=== PATIENT | male | born 1960 | race Caucasian/White ===

== ENCOUNTER 2024-10-10 13:17 | Oncology outpatient (recurring) (ONCR) | payer SELFPAY | END 2024-10-21 23:59 | disposition home or self-care (01) | PROVIDERS: Visit Provider Internal Medicine Medical Oncology | DX: C22.1 Intrahepatic bile duct carcinoma; G89.3 Neoplasm related pain (acute) (chronic) ==

== ENCOUNTER 2024-10-11 07:15 | Emergency (ER) | payer MEDICARE, SELFPAY ==
--- NOTE | 2024-10-11 07:23 | ED_ITS ---
HPI - Abdominal Pain 2 General: Chief Complaint: Abdominal Pain Stated Complaint: serve abd pain Time Seen by Provider: 10/11/24 07:21 Source: patient and family Mode of arrival: wheelchair Limitations: no limitations History of Present Illness: Patient is a 64 year old male here for complaints of severe abdominal pain. Looking at previous documentation (only one note in our system-was from our oncology center yesterday). There visit HPI is as follows: 64 years a gentleman with history of travis ated hepatitis C. He lived in [facility]. Presented to local hospital for abdominal pain. And was admitted to [facility]. Patient undergoing upper and lower endoscopy which did not see any tumor. CT scan of abdomen shows multiple rounded mass in the liver. There is also multiple lung nodule. Extensive bulky adenopathy in the right hepatic hilum and throughout the retroperitoneum extending to the left common iliac region. Patient underwent CT-guided biopsy of the liver lesion on October 04 which shows poorly differentiated carcinoma. CK7 CK20 CK19 was positive. 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 Patient received 1 radiation treatment to relieve the pain also had a celiac blockage. Then family took patient back to [facility] for further treatment. He is currently taking Dilaudid for pain. He also has high blood pressure taking clonidine. He lost some weight. Has constipation. Patient arrives to the ED today along with his son. He recently has brought him home here in [place] from his original residence in [facility] as the patient has no friends/family there to take care of him. The son is now caring for him here. Son states on their way back from [place], they had to stop in [place] due to patient's pain. Date of service was 10/07 (4 days ago). He did undergo CT imaging while at their facility. CT scan at that time showed innumerable masses within the liver consistent with multifocal metastatic disease, extensive lymphadenopathy consistent with metastatic disease or lymphoma, small to moderate volume abdominal and pelvic ascites, circumferential wall thickening within distal esophagus, and nodular opacities in his lungs. Son states they have plans to obtain additional lab work and MRI imaging through our [facility] oncology department. They have been told that his only option at this time is palliative chemotherapy. Patient states he has had similar flares in his abdominal pain that he had to seek medical evaluation for and receive IV Dilaudid to help. MD elicited complaint: abdominal pain Pertinent past history: other (cancer) Location: Diffuse Severity: severe Pain scale (0-10): 10 Radiation: none Migration to: no migration Exacerbating factors: nothing Relieving factors: nothing Context: other (known intra-abdominal malignancy) Associated Symptoms: Reports constipation, nausea and vomiting; Denies chills, diarrhea, dysuria, fever(s), hematochezia and melena Related Data Home Medications Medication Instructions Recorded Confirmed amlodipine 5 mg tablet 5 mg PO DAILY 10/10/24 10/11/24 bisacodyl 10 mg rectal suppository 10 mg [place] DAILY PRN Constipation 10/10/24 10/11/24 naloxone 4 mg/actuation nasal spray 4 mg intranasal Q2M 10/10/24 10/11/24 ondansetron 4 mg disintegrating 4 mg PO Q8H PRN Nausea 10/10/24 10/11/24 tablet polyethylene glycol 3350 17 4 g PO DAILY 10/10/24 10/11/24 gram/dose oral powder promethazine 25 mg tablet 25 mg PO .Q4-6H PRN Nausea 10/11/24 10/11/24 Previous Rx's Medication Instructions Recorded clonidine HCl 0.1 mg tablet 0.1 mg PO TID #90 tabs 10/10/24 gabapentin 300 mg capsule 300 mg PO TID #90 caps 10/10/24 hydromorphone 8 mg tablet 4 mg (1/2 x 8 mg) PO Q3H PRN pain 10/10/24 30 days #120 tabs Allergies Allergy/AdvReac Type Severity Reaction Status Date / Time No Known Drug Allergies Allergy Unknown Verified 10/11/24 07:35 Review of Systems 2 Const: Denies: fever(s), chills, body aches, fatigue or malaise Card: Denies: chest pain Resp: Denies: dyspnea GI: Reports: abdominal pain, nausea, vomiting and constipation; Denies: diarrhea, hematochezia or melena : Denies: flank pain, difficulty urinating, dysuria, urinary frequency, urinary urgency or urinary hesitancy Musc: Denies: neck pain, back pain, extremity pain, extremity swelling, joint pain or joint swelling Skin/Breast: Denies: rash Neuro: Denies: headache(s), numbness in extremities, weakness in extremities, sensory changes or dizziness PFS ED 2 PFSH: Medical History Hepatitis C Social History Smoking and tobacco/nicotine status: current some day tobacco/nicotine user Physical Exam 2 Const: COMMON NORMALS: patient oriented x3, no limitations and alert G ENERAL APPEARANCE: cooperative, in distress (due to abdominal discomfort) and frail appearing ORIENTATION/CONSCIOUSNESS: Yes awake, Yes oriented to person, Yes oriented to place and Yes oriented to time HENMT: COMMON NORMALS: normocephalic and atraumatic HEAD & SCALP: normal to inspection, normocephalic and atraumatic Eye: COMMON NORMALS: no scleral icterus Resp: COMMON NORMALS: normal respiratory effort and clear to auscultation bilaterally AUSCULTATION: clear to auscultation bilaterally Cardio: COMMON NORMALS: regular rate and regular rhythm RATE: regular rate RHYTHM: regular rhythm GI: INSPECTION: Yes normal to inspection AUSCULTATION: Yes normoactive bowel sounds PALPATION: Yes Tenderness to palpation present (GI) (diffusely), Yes Guarding due to palpation present (GI) (diffusely) and Yes Palpable mass present : COMMON NORMALS: Yes no CVA tenderness BLADDER/KIDNEY EXAM: Yes no CVA tenderness Back/Pelvis: COMMON NORMALS: no CVA tenderness and thoracic and lumbar spine normal to inspection Extremity: GENERAL: Yes normal exam except as noted Neuro: COMMON NORMALS: patient oriented x3, moves all extremities, no focal motor deficits and no sensory deficits noted SENSORIUM/ORIENTATION: Yes alert, Yes oriented to person, Yes oriented to place and Yes oriented to time Skin: COMMON NORMALS: no rashes or lesions noted GENERAL SKIN EXAM: no rashes or lesions noted Course 2 Vital Signs: Vital signs: Vital Signs Temperature 98.0 F 10/11/24 07:28 Pulse Rate 95 10/11/24 07:57 Respiratory Rate 11 L 10/11/24 07:57 Blood Pressure 139/86 10/11/24 07:57 Pulse Oximetry 93 10/11/24 07:57 Oxygen Delivery Me thod Room Air 10/11/24 07:28 MDM - Abdominal Pain Medical Decision Making Patient here for cancer related pain. His vital signs are stable. His blood work is nonactionable at this time. This was compared to recent lab work he had at [place] just a few days ago. CT scan reviewed from there as well. I do not see any emergent indication for repeat CT imaging on this visit. Upon administration of IV pain medications, he is sleeping/resting comfortably. He feels comfortable going home. Encourage plan to follow-up with oncology. I will place a case management to get him prompt set up with a primary care provider as well since he is new to the area. Medical Records I reviewed the patient's medical records. Lab Data I reviewed the patient's lab results. 10/11/24 07:45 10/11/24 07:45 Labs/Radiology: Laboratory Results WBC 12.68 10^3/uL (3.29-11.43) H 10/11/24 07:45 RBC 4.10 10^6/uL (3.85-5.65) 10/11/24 07:45 Hgb 11.40 g/dL (11.27-16.99) 10/11/24 07:45 Hct 36.0 % (37-53) L 10/11/24 07:45 MCV 87.8 fl (82-101) 10/11/24 07:45 MCH 27.8 pg (27-33) 10/11/24 07:45 MCHC 31.7 g/dL (30-55) 10/11/24 07:45 RDW 15.7 % (12.1-15.1) H 10/11/24 07:45 Plt Count 270 10^3/cmm (157-399) 10/11/24 07:45 MPV 9.3 fL (7.4-10.4) 10/11/24 07:45 Neut % (Auto) 83.3 % 10/11/24 07:45 Lymph % (Auto) 5.9 % 10/11/24 07:45 [place] % (Auto) 8.9 % 10/11/24 07:45 Eos % (Auto) 1.3 % 10/11/24 07:45 Baso % (Auto) 0.3 % 10/11/24 07:45 Neut # (Auto) 10.55 10^3/uL (1.8-7.7) H 10/11/24 07:45 Lymph # (Auto) 0.8 10^3/uL (0.8-4.8) 10/11/24 07:45 [place] # (Auto) 1.1 10^3/uL (0.2-0.9) H 10/11/24 07:45 Eos # (Auto) 0.2 10^3/uL (0.0-0.8) 10/11/24 07:45 Baso # (Auto) 0.0 10^3/uL (0.0-0.1) 10/11/24 07:45 Nucleated RBC % (auto) 0 % 10/11/24 07:45 Nucleated RBCs # 0.0 /100WBC 10/11/24 07:45 PT 13.50 SECONDS (12.1-14.9) 10/11/24 07:45 INR 1.00 (0.8-1.2) 10/11/24 07:45 APTT 27.9 SECONDS (23.9-36.7) 10/11/24 07:45 Sodium 131 mmol/L (136-145) L 10/11/24 07:45 Potassium 4.4 mmol/L (3.5-5.1) 10/11/24 07:45 Chloride 93 mmol/L (98-107) L 10/11/24 07:45 Carbon Dioxide 28 mmol/L (22-29) 10/11/24 07:45 Anion Gap 14.4 (5-19) 10/11/24 07:45 BUN 12 mg/dL (8-23) 10/11/24 07:45 Creatinine 0.6 mg/dL (0.7-1.2) L 10/11/24 07:45 GFR Calculation 135.2 mL/min (90-130) H 10/11/24 07:45 Glucose 148 mg/dL (65-115) H 10/11/24 07:45 Calculated Osmolality 275 mOsm/kg (285-295) L 10/11/24 07:45 Calcium 9.6 mg/dL (8.5-10.5) 10/11/24 07:45 Total Bilirubin 0.6 mg/dL (0.15-1.2) 10/11/24 07:45 AST 28 U/L (0-40) 10/11/24 07:45 ALT 19 U/L (0-41) 10/11/24 07:45 Alkaline Phosphatase 285 U/L (40-130) H 10/11/24 07:45 Total Protein 7.8 g/dL (6.6-8.7) 10/11/24 07:45 Albumin 3.7 g/dL (3.5-5.2) 10/11/24 07:45 Globulin 4.1 g/dL (1.3-4.6) 10/11/24 07:45 Lipase 10 U/L (13-60) L 10/11/24 07:45 Amorphous Sediment Not Reportable 10/11/24 07:45 No radiology studies performed this visit ED provider radiology interpretation(s): reviewed CT scan from outside facility just a few days ago Discharge Plan Discharge Patient Disposition: Home Clinical Impression: Cholangiocarcinoma, Cancer related pain Condition: Stable Prescriptions: No Action naloxone 4 mg/actuation spray,non-aerosol 4 mg intranasal Q2M Rx Instructions: spray 1 dose into ONE nostril; alternate nostrils w each dose until help arrives ondansetron 4 mg tablet,disintegrating 4 mg PO Q8H PRN (Reason: Nausea) amlodipine 5 mg tablet 5 mg PO DAILY bisacodyl 10 mg suppository 10 mg [place] DAILY PRN (Reason: Constipation) polyethylene glycol 3350 17 gram/dose powder 4 g PO DAILY gabapentin 300 mg capsule 300 mg PO TID Qty: 90 0RF clonidine HCl 0.1 mg tablet 0.1 mg PO TID Qty: 90 0RF hydromorphone 8 mg tablet 4 mg PO Q3H PRN (Reason: pain) 30 Days Qty: 120 0RF promethazine 25 mg tablet 25 mg PO .Q4-6H PRN (Reason: Nausea) Discharge Orders: Discharge ED (Routine); Ordered 10/11/24 Ordered By: Magalie Hankins Activity Restrictions/Additional Instructions: As we discussed, I would like him to follow-up with oncology as soon as possible for further treatment plan. I have also placed a case management referral to get him set up with a primary care provider as well. He may continue using his oral pain medications as needed. He may return to the emergency department for any further concerns you may have. Coding Level of Care Code ED Dopster for Arleen Pollack
[2024-10-11 07:28] VITALS: BP 158/102; PULSE 106; RESP 17; TEMP 36.7; O2SAT 94; BMI 18.8
[2024-10-11 07:47] VITALS: RESP 22; O2SAT 95
[2024-10-11] MEDS: HYDROmorphone 1 mg/mL INJ 1 mL IVP (07:47)
[2024-10-11] MEDS: ondansetron 2 mg/ML SDV 2 mL 4 MG IVP (07:50)
[2024-10-11 07:52] LABS: Basophils % 0.3 %; Eosinophils # 0.2 10^3/uL (0.0-0.8); Eosinophils % 1.3 %; Lymphocytes # 0.8 10^3/uL (0.8-4.8); Lymphocytes % 5.9 %; Mean Corpuscular HGB Conc 31.7 g/dL (30-55); Mean Corpuscular Hemoglobin 27.8 pg (27-33); Mean Corpuscular Volume 87.8 fl (82-101); Mean Platelet Volume 9.3 fL (7.4-10.4); Monocytes # 1.1 10^3/uL (0.2-0.9); Monocytes % 8.9 %; Neutrophils # 10.55 10^3/uL (1.8-7.7); Neutrophils % 83.3 %; Nucleated Red Blood Cells % 0 %; Platelet Count 270 10^3/cmm (157-399); Red Cell Distribution Width 15.7 % (12.1-15.1); White Blood Count 12.68 10^3/uL (3.29-11.43)
[2024-10-11 07:57] VITALS: BP 139/86; PULSE 95; RESP 11; O2SAT 93
--- NOTE | 2024-10-11 08:07 | PC.PHAR ---
Pt states took his meds yesterday and only Hydromorphone 8mg this morning. Pt states he needs Case Management to help him with insurance coverage issues.
[2024-10-11 08:08] LABS: Alanine Aminotransferase 19 U/L (0-41); Albumin Level 3.7 g/dL (3.5-5.2); Alkaline Phosphatase 285 U/L (40-130); Anion Gap 14.4 (5-19); Aspartate Amino Transferase 28 U/L (0-40); Blood Urea Nitrogen 12 mg/dL (8-23); Calcium 9.6 mg/dL (8.5-10.5); Carbon Dioxide 28 mmol/L (22-29); Chloride 93 mmol/L (98-107); Creatinine Clr Calc Pharmacy 70.8737; Globulin 4.1 g/dL (1.3-4.6); Glomerular Filtration Rate 135.2 mL/min (90-130); Glucose 148 mg/dL (65-115); Lipase 10 U/L (13-60); Osmolality Calculated 275 mOsm/kg (285-295); Potassium 4.4 mmol/L (3.5-5.1); Sodium 131 mmol/L (136-145); Total Bilirubin 0.6 mg/dL (0.15-1.2); Total Protein 7.8 g/dL (6.6-8.7)
[2024-10-11 08:11] LABS: Partial Thromboplastin Time 27.9 SECONDS (23.9-36.7)
[2024-10-11 08:26] LABS: Add Urine Microscopic? YES; Bacteria Urine None Seen /hpf; Bilirubin Urine Negative (Negative); Blood Urine Negative (Negative); Glucose Urine UA Negative (Normal); Hyaline Casts Urine 0-4 /lpf; Ketones Urine Negative (Negative); Leukocyte Esterase Urine Trace (Negative); Nitrate Urine Negative (Negative); Protein Urine Negative (Negative); RBC Urine 0-2 /hpf (0-2); Specific Gravity, Urine 1.016 (1.005-1.030); Squamous Epithelial Cell Urine 0-5 /hpf (0-5); Urine Appearance Clear (CLEAR); Urine Color Yellow (Yellow); WBC Urine 0-5 /hpf (0-5)
[2024-10-11 08:37] VITALS: BP 145/90; PULSE 93; O2SAT 95
--- NOTE | 2024-10-13 00:15 | DCPLANNER ---
Message sent to clinics to establish PCP-
== END 2024-10-11 08:39 | disposition home or self-care (01) ==
PROVIDERS: Emergency Provider Physician Assistant
DX: C22.1 Intrahepatic bile duct carcinoma (principal); Z72.0 Tobacco use
CPT/HCPCS: 36415; 80053; 81001; 83690; 85025; 85610; 85730; 96374; 96375; 99284; J1171; J2405

== ENCOUNTER 2024-10-25 17:18 | Emergency (ER) | payer MEDICARE, MEDICAID, SELFPAY ==
[2024-10-25] VITALS (13 sets, daily range): BP systolic 126–152; BP diastolic 77–106; PULSE 93–118; RESP 17–18; TEMP 36.4; O2SAT 91–100; BMI 18.8
--- NOTE | 2024-10-25 18:11 | W.ED.ABDPA2 ---
HPI - Abdominal Pain General: Chief Complaint: Abdominal Pain Stated Complaint: abd pain Time Seen by Provider: 10/25/24 17:56 Source: patient Mode of arrival: wheelchair Limitations: no limitations History of Present Illness: Patient presents emergency department today accompanied by his son for evaluation treatment of acute on chronic abdominal pain. Unfortunately, patient has been found to have multiple liver metastases as well as lung metastases with likelihood of hepatobiliary carcinoma. He is currently followed by Dr. Barr. Patient has chronic abdominal pains and is on 4 mg of Dilaudid every 3 hours. Son states when he does have breakthrough pain they will often give him a full dose. However, patient has begun having vomiting. He has tolerated some water but, still will vomit up water. No food for over 48 hours. Patient has an upcoming MRI and an appointment with his oncologist next Wednesday. Patient has been seen and evaluated here in the emergency department a couple weeks ago for breakthrough pain and responded well to IV Dilaudid. Patient indicates that since his diagnosis, has had to be seen in the emergency room setting for acute breakthrough pain of which, IV Dilaudid has helped him significantly in the past. Patient has 1 oncology note in his chart with an HPI from 10/10 that reads: 64 years a gentleman with history of treated hepatitis C. He lived in [facility]. Presented to local hospital for abdominal pain. And was admitted to [facility]. Patient undergoing upper and lower endoscopy which did not see any tumor. CT scan of abdomen shows multiple rounded mass in the liver. There is also multiple lung nodule. Extensive bulky adenopathy in the right hepatic hilum and throughout the retroperitoneum extending to the left common iliac region. Patient underwent CT-guided biopsy of the liver lesion on October 04 which shows poorly differentiated carcinoma. CK7 CK20 CK19 was positive. 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 Patient received 1 radiation treatment to relieve the pain also had a celiac blockage. Then family took patient back to [facility] for further treatment. He is currently taking Dilaudid for pain. He also has high blood pressure taking clonidine. He lost some weight. Has constipation. Related Data Home Medications Medication Instructions Recorded Confirmed amlodipine 5 mg tablet 5 mg PO DAILY 10/10/24 10/11/24 bisacodyl 10 mg rectal suppository 10 mg [place] DAILY PRN Constipation 10/10/24 10/11/24 naloxone 4 mg/actuation nasal spray 4 mg intranasal Q2M 10/10/24 10/11/24 ondansetron 4 mg disintegrating 4 mg PO Q8H PRN Nausea 10/10/24 10/11/24 tablet polyethylene glycol 3350 17 4 g PO DAILY 10/10/24 10/11/24 gram/dose oral powder promethazine 25 mg tablet 25 mg PO .Q4-6H PRN Nausea 10/11/24 10/11/24 Previous Rx's Medication Instructions Recorded clonidine HCl 0.1 mg tablet 0.1 mg PO TID #90 tabs 10/10/24 gabapentin 300 mg capsule 300 mg PO TID #90 caps 10/10/24 hydromorphone 8 mg tablet 4 mg (1/2 x 8 mg) PO Q3H PRN pain 10/10/24 30 days #120 tabs Allergies Allergy/AdvReac Type Severity Reaction Status Date / Time No Known Drug Allergies Allergy Unknown Verified 10/11/24 07:35 Review of Systems General: Reports: 10 or more systems reviewed and unremarkable except in HPI and below PFSH ED PFSH: Medical History Hepatitis C Social History Smoking and tobacco/nicotine status: current some day tobacco/nicotine user Physical Exam Const: COMMON NORMALS: patient oriented x3 and alert OTHER: Patient is cachectic and frail. He is in a position in the bed underneath the blankets but, is pleasant and social-answering questions and participating in his exam. HENMT: COMMON NORMALS: normocephalic, atraumatic and hearing grossly normal bilaterally HEAD & SCALP: normocephalic and atraumatic Eye: SCLERA: sclerae normal Neck/C-Spine: COMMON NORMALS: full ROM and no meningeal signs Resp: COMMON NORMALS: normal respiratory effort, No retractions, No use of accessory muscles and clear to auscultation bilaterally AUSCULTATION: clear to auscultation bilaterally Cardio: OTHER: Tachycardic GI: OTHER: Patient with severely scaphoid abdomen-prefers to be laid on his side due to his pain. Limited abdominal exam due to patient discomfort. Back/Pelvis: COMMON NORMALS: no thoracic nor lumbar tenderness and thoraco-lumbar ROM normal OTHER: Protrusion of patient ribs and spinous processes on physical examination. Extremity: OTHER: Patient is ambulatory and weightbearing. Neuro: COMMON NORMALS: patient oriented x3 SENSORIUM/ORIENTATION: Yes alert MENINGEAL SIGNS: Yes no meningeal signs Psych: COMMON NORMALS: mental status grossly normal, Normal thought process present, cooperative, normal affect and activity/motor behavior normal THOUGHT PROCESS: Normal thought process present Skin: OTHER: No obvious jaundice Course Vital Signs: Vital signs: Vital Signs Temperature 97.6 F 10/25/24 17:18 Pulse Rate 96 10/26/24 00:00 Respiratory Rate 18 10/25/24 23:31 Blood Pressure 138/84 10/26/24 00:00 Pulse Oximetry 93 10/26/24 00:00 Oxygen Delivery Me thod Room Air 10/26/24 00:00 MDM - Abdominal Pain Medical Decision Making Patient presented to the emergency department today for concerns of acute worsening of generalized abdominal pain secondary to a recent diagnosis of hepatobiliary carcinoma. Patient was also having difficulty tolerating fluids due to his vomiting. Patient was treated for his pain acutely here in the emergency department. Lab work was relatively stable considering the patient's overall condition though he was found to be hyponatremic. Did discuss the case with Dr. Alonso as there was consideration for admission for dehydration, hyponatremia, and pain management. However, he is requesting a CT examination of the patient's abdomen to rule out a potential obstruction. Patient has no bowel obstruction but, there is findings of vein and artery compression. These findings, it is recommended that the patient be transferred out to a higher level of care-especially somewhere that may have IR or hepatology. I did discuss this recommendation for transfer out with the patient and family. They did wish to try [facility] first and [facility] next if possible. However, [facility], [facility], [facility], [facility], [facility] all had no bed availability or no specialty care. I was able to reach out to [facility] and spoke with Dr. Lechuga with hepatobiliary surgery. We discussed the patient's case. She is willing to take this patient under the admission of Dr. Weller. She is requesting imaging be sent on the cloud as well as patient's other lab work and his hematology/oncology evaluation to be sent with him for this transfer. I discussed the admission with the patient. We are also informing his son who has gone home for the night but, wish to be informed of any placement of the patient. Patient is currently hemodynamically stable. He has received fluids and pain medication here as well as antinausea medication. As the patient may still be here a bit longer in the emergency department. I encouraged him to let us know if he is having any return of pain or nausea. At this time, continued observation of the patient here in the emergency department until transfer to [facility] for any further treatment or intervention needed handed over to Dr. Anderson at 0115. Differential Diagnosis Likely abdominal pain; Unlikely acute appendicitis, calculus of kidney, diverticulitis, gastroenteritis, pancreatitis or small bowel obstruction Lab Data 10/25/24 19:10/25/24 19: Labs/Radiology: Radiology Impressions Abdomen/Pelvis CT 10/25/24 21:31 IMPRESSION: 1. Multifocal lesions within the liver compatible with given history of hepatobiliary carcinoma with numerous metastases. Correlate with prior imaging if available for comparison. 2. Numerous enlarged upper abdominal and retroperitoneal lymph nodes as detailed above, compatible with metastases. A lymphoproliferative disorder is also possible given extensive retroperitoneal lymphadenopathy. 3. Attenuation of portions of the common and proper hepatic arteries with near-complete occlusion along portions of these arteries. 4. Attenuation and near-complete occlusion of the main portal vein and distal superior mesenteric vein related to upper abdominal lymphadenopathy. 5. Small volume ascites in the abdomen/pelvis. 6. Part solid nodule in the left lower lobe is nonspecific. Metastasis not excluded. Laboratory Results WBC 16.89 10^3/uL (3.29-11.43) H 10/25/24 19: RBC 4.37 10^6/uL (3.85-5.65) 10/25/24 19: Hgb 12.40 g/dL (11.27-16.99) 10/25/24 19: Hct 38.0 % (37-53) 10/25/24 19: MCV 87.0 fl (82-101) 10/25/24 19: MCH 28.4 pg (27-33) 10/25/24 19: MCHC 32.6 g/dL (30-55) 10/25/24 19: RDW 15.7 % (12.1-15.1) H 10/25/24 19:01 Plt Count 322 10^3/cmm (157-399) 10/25/24 19:01 MPV 9.6 fL (7.4-10.4) 10/25/24 19:01 Neut % (Auto) 89.9 % 10/25/24 19:01 Lymph % (Auto) 4.3 % 10/25/24 19:01 [place] % (Auto) 4.3 % 10/25/24 19:01 Eos % (Auto) 0.6 % 10/25/24 19:01 Baso % (Auto) 0.4 % 10/25/24 19:01 Neut # (Auto) 15.19 10^3/uL (1.8-7.7) H 10/25/24 19:01 Lymph # (Auto) 0.7 10^3/uL (0.8-4.8) L 10/25/24 19:01 [place] # (Auto) 0.7 10^3/uL (0.2-0.9) 10/25/24 19:01 Eos # (Auto) 0.1 10^3/uL (0.0-0.8) 10/25/24 19:01 Baso # (Auto) 0.1 10^3/uL (0.0-0.1) 10/25/24 19:01 Nucleated RBC % (auto) 0 % 10/25/24 19:01 Nucleated RBCs # 0.0 /100WBC 10/25/24 19:01 PT 13.70 SECONDS (12.1-14.9) 10/25/24 19:01 INR 1.01 (0.8-1.2) 10/25/24 19:01 Sodium 127 mmol/L (136-145) L 10/25/24 19:01 Potassium 4.5 mmol/L (3.5-5.1) 10/25/24 19:01 Chloride 88 mmol/L (98-107) L 10/25/24 19:01 Carbon Dioxide 26 mmol/L (22-29) 10/25/24 19:01 Anion Gap 17.5 (5-19) 10/25/24 19:01 BUN 17 mg/dL (8-23) 10/25/24 19:01 Creatinine 0.7 mg/dL (0.7-1.2) 10/25/24 19: GFR Calculation 113.2 mL/min (90-130) 10/25/24 19: Glucose 92 mg/dL (65-115) 10/25/24 19: Calculated Osmolality 265 mOsm/kg (285-295) L 10/25/24 19:01 Lactic Acid 2.3 mmol/L (0.5-2.2) H 10/26/24 00:03 Calcium 13.2 mg/dL (8.5-10.5) H 10/25/24 19: Total Bilirubin 0.8 mg/dL (0.15-1.2) 10/25/24 19: AST 28 U/L (0-40) 10/25/24 19: ALT 12 U/L (0-41) 10/25/24 19: Alkaline Phosphatase 253 U/L (40-130) H 10/25/24 19:01 Total Protein 8.6 g/dL (6.6-8.7) 10/25/24 19: Albumin 3.6 g/dL (3.5-5.2) 10/25/24 19: Globulin 5.0 g/dL (1.3-4.6) H 10/25/24 19: Lipase 6 U/L (13-60) L 10/25/24 19:01 Urine Color Dark yellow (Yellow) A 10/25/24 21:10 Urine Appearance Clear (CLEAR) 10/25/24 21:10 Urine pH 5.5 (5-7) 10/25/24 21:10 Ur Specific [place] 1.020 (1.005-1.030) 10/25/24 21:10 Urine Protein 1+ (Negative) A 10/25/24 21:10 Urine Glucose (UA) Negative (Normal) 10/25/24 21:10 Urine Ketones 1+ (Negative) H 10/25/24 21:10 Urine Blood Negative (Negative) 10/25/24 21:10 Urine Nitrate Negative (Negative) 10/25/24 21:10 Urine Bilirubin Negative (Negative) 10/25/24 21:10 Urine Urobilinogen 1.0 mg/dL (Negative) 10/25/24 21:10 Ur Leukocyte Esterase Negative (Negative) 10/25/24 21:10 Urine RBC 0-2 /hpf (0-2) 10/25/24 21:10 Urine WBC 0-5 /hpf (0-5) 10/25/24 21:10 Ur Squamous Epith Cells 0-5 /hpf (0-5) 10/25/24 21:10 Amorphous Sediment Not Reportable 10/25/24 21:10 Urine Bacteria None seen /hpf (NONE) 10/25/24 21:10 Hyaline Casts 7.01 /lpf 10/25/24 21:10 All radiology interpretation(s) finalized by discharge Discharge Plan Discharge Patient Disposition: Transfer to ED Clinical Impression: Cancer related pain, Hyponatremia, Carcinoma of hepatobiliary system Condition: Stable Prescriptions: No Action naloxone 4 mg/actuation spray,non-aerosol 4 mg intranasal Q2M Rx Instructions: spray 1 dose into ONE nostril; alternate nostrils w each dose until help arrives ondansetron 4 mg tablet,disintegrating 4 mg PO Q8H PRN (Reason: Nausea) amlodipine 5 mg tablet 5 mg PO DAILY bisacodyl 10 mg suppository 10 mg [place] DAILY PRN (Reason: Constipation) polyethylene glycol 3350 17 gram/dose powder 4 g PO DAILY gabapentin 300 mg capsule 300 mg PO TID Qty: 90 0RF clonidine HCl 0.1 mg tablet 0.1 mg PO TID Qty: 90 0RF hydromorphone 8 mg tablet 4 mg PO Q3H PRN (Reason: pain) 30 Days Qty: 120 0RF promethazine 25 mg tablet 25 mg PO .Q4-6H PRN (Reason: Nausea) Coding Level of Care Code ED [employer] Person for Arleen Pollack
[2024-10-25] MEDS: HYDROmorphone 1 mg/mL INJ 1 mL IVP (19:06)
[2024-10-25] MEDS: metoclopramide 5 mg/mL SDV 2 mL 10 MG IVP (19:07)
[2024-10-25] MEDS: sodium chloride 0.9% 500 ML IV ×2 (19:11→21:25)
[2024-10-25 19:26] LABS: Basophils # 0.1 10^3/uL (0.0-0.1); Basophils % 0.4 %; Eosinophils # 0.1 10^3/uL (0.0-0.8); Eosinophils % 0.6 %; Lymphocytes # 0.7 10^3/uL (0.8-4.8); Lymphocytes % 4.3 %; Mean Corpuscular HGB Conc 32.6 g/dL (30-55); Mean Corpuscular Hemoglobin 28.4 pg (27-33); Mean Platelet Volume 9.6 fL (7.4-10.4); Monocytes # 0.7 10^3/uL (0.2-0.9); Monocytes % 4.3 %; Neutrophils # 15.19 10^3/uL (1.8-7.7); Neutrophils % 89.9 %; Nucleated Red Blood Cells % 0 %; Platelet Count 322 10^3/cmm (157-399); Red Blood Count 4.37 10^6/uL (3.85-5.65); Red Cell Distribution Width 15.7 % (12.1-15.1); White Blood Count 16.89 10^3/uL (3.29-11.43)
[2024-10-25 19:30] LABS: Alanine Aminotransferase 12 U/L (0-41); Albumin Level 3.6 g/dL (3.5-5.2); Alkaline Phosphatase 253 U/L (40-130); Anion Gap 17.5 (5-19); Aspartate Amino Transferase 28 U/L (0-40); Blood Urea Nitrogen 17 mg/dL (8-23); Calcium 13.2 mg/dL (8.5-10.5); Carbon Dioxide 26 mmol/L (22-29); Chloride 88 mmol/L (98-107); Creatinine Clr Calc Pharmacy 70.8737; Glomerular Filtration Rate 113.2 mL/min (90-130); Glucose 92 mg/dL (65-115); Lipase 6 U/L (13-60); Osmolality Calculated 265 mOsm/kg (285-295); Potassium 4.5 mmol/L (3.5-5.1); Sodium 127 mmol/L (136-145); Total Bilirubin 0.8 mg/dL (0.15-1.2); Total Protein 8.6 g/dL (6.6-8.7)
[2024-10-25 19:31] LABS: INR 1.01 (0.8-1.2)
--- NOTE | 2024-10-25 21:31 | CTR_ITS ---
PROCEDURE INFORMATION: Exam: CT Abdomen And Pelvis With Contrast Exam date and time: 10/25/2024 9:48 PM Age: 64 years old Clinical indication: Abdominal pain; Additional info: Pain, known hepatobiliary CA, acute worsening of pain- eval TECHNIQUE: Imaging protocol: Computed tomography of the abdomen and pelvis with contrast. Radiation optimization: All CT scans at this facility use at least one of these dose optimization techniques: automated exposure control; mA and/or kV adjustment per patient size (includes targeted exams where dose is matched to clinical indication); or iterative reconstruction. Contrast material: OMNI 350; Contrast volume: 100 ml; Contrast route: INTRAVENOUS (IV); COMPARISON: No relevant prior studies available. RADIATION DOSE METRICS: Total DLP (mGy-cm): 316.87 FINDINGS: Lungs: Partially imaged part solid 8 mm nodule in the left lower lobe. Tree-in-bud nodules in the right lower lobe. Liver: Numerous ill-defined hepatic lesions are seen throughout the right and left hepatic lobes. A dominant right hepatic lobe lesion measures 3.0 x 2.6 cm (series 3, image 15). Dominant left hepatic lobe lesion measures 2.0 x 1.4 cm (image 28). Heterogeneous enhancement of the liver. Gallbladder and biliary ducts: Normal. No calcified stones. No ductal dilation. Pancreas: Normal. No ductal dilation. Spleen: Normal. No splenomegaly. Adrenal glands: Normal. No mass. Kidneys and ureters: Normal. No hydronephrosis. Stomach and bowel: Unremarkable. No obstruction. No mucosal thickening. Appendix: No evidence of appendicitis. Intraperitoneal space: Small volume free fluid in the abdomen/pelvis. Vasculature: No abdominal aortic aneurysm. Mild atherosclerosis. Lymph nodes: Enlarged, heterogeneous kwaku conglomerate along the lorraine hepatis and upper abdomen measuring approximately 7.7 x 8.2 cm in axial dimensions (centered on series 3, image 24). This mass encases portions of the IVC, the main portal vein and distal SMV, and the common hepatic artery. There is attenuation of the common and proper hepatic arteries likely due to mass effect. A separate enlarged lorraine hepatis lymph node measures 2.2 x 1.5 cm (series 3, image 24). Extensive bulky retroperitoneal lymphadenopathy measuring up to 5.3 x 9.3 x 17.3 cm. This adenopathy encases the aorta and IVC, lifting these vessels away from the spinal column. A gastrohepatic lymph node measures 3.2 x 2.7 cm (series 3, image 17). A separate retroperitoneal lymph node anterior to the aorta measures 2.4 x 2.0 cm (image 21). Urinary bladder: Mild diffuse bladder wall thickening. Reproductive: Partially imaged right hydrocele. Bones/joints: Old right posterior 11th rib fracture Soft tissues: Unremarkable. CT/CT abdomen pelvis w con* [id number] IMPRESSION: 1. Multifocal lesions within the liver compatible with given history of hepatobiliary carcinoma with numerous metastases. Correlate with prior imaging if available for comparison. 2. Numerous enlarged upper abdominal and retroperitoneal lymph nodes as detailed above, compatible with metastases. A lymphoproliferative disorder is also possible given extensive retroperitoneal lymphadenopathy. 3. Attenuation of portions of the common and proper hepatic arteries with near-complete occlusion along portions of these arteries. 4. Attenuation and near-complete occlusion of the main portal vein and distal superior mesenteric vein related to upper abdominal lymphadenopathy. 5. Small volume ascites in the abdomen/pelvis. 6. Part solid nodule in the left lower lobe is nonspecific. Metastasis not excluded.
[2024-10-25 21:39] LABS: Bacteria Urine None Seen /hpf; Hyaline Casts Urine 7.01 /lpf; RBC Urine 0-2 /hpf (0-2); Squamous Epithelial Cell Urine 0-5 /hpf (0-5); WBC Urine 0-5 /hpf (0-5)
[2024-10-25 21:41] LABS: Add Urine Microscopic? YES; Bilirubin Urine Negative (Negative); Blood Urine Negative (Negative); Glucose Urine UA Negative (Normal); Ketones Urine 1+ (Negative); Leukocyte Esterase Urine Negative (Negative); Nitrate Urine Negative (Negative); Protein Urine 1+ (Negative); Urine Color Dark Yellow (Yellow); pH Urine 5.5 (5-7)
[2024-10-25 21:42] LABS: Urine Appearance Clear (CLEAR)
[2024-10-25] MEDS: iohexol 350 mg/mL 500 mL Btl (per mL) IV (21:49)
--- NOTE | 2024-10-25 22:48 | PM.CONSULT ---
Providers/Reason For Consult Consulting Physician/Specialty*: Hospitalist Reason for Consult*: Hyponatremia, pain History of Present Illness History of Present Illness Sergio Paniagua is a 64 year old male who has recently moved from [facility] to live with his family as per the son who is at the bedside patient got diagnosed with cancer recently a month ago, primary seems to be unknown but hepatobiliary versus pancreatic origin is being considered, patient has seen radiation oncologist at [facility] status post 1 therapy patient is not able to tolerate any diet at all has been experiencing nausea vomiting, last proper meal was few days ago, he is losing weight, pain is out of control, he cannot even take his p.o. opioids. Patient is from [facility], he was admitted to [facility] where he had endoscopies which was unremarkable, CT scan showed bulky adenopathy right hepatic hilum retroperitoneal area extending to left common iliac region CT-guided biopsy #13 showed poorly differentiated cancer with concerns related to pancreas biliary origin. Patient is endorsing history of cholangiocarcinoma and his mother Patient drinks occasionally, recently quit smoking I have requested CT abdomen pelvis which is showing multifocal liver lesion, retroperitoneal lymphadenopathies, near complete occlusion of hepatic arteries, near: Cleat occlusion of portal vein, ascites, left lower lobe nodule I have recommended transfer to tertiary level of care for pain management GI/hepatology and IR consultation I am afraid we will not be able to control his pain adequately considering metastatic lesions causing vascular occlusion at multiple levels Patient and his son both agreeable for transfer I did see them in the ER while we were waiting for the CT abdomen pelvis report Review of Systems Const: Reports: chills and change in weight Eyes: Denies: change in vision ENMT: Denies: throat pain GI: Reports: abdominal pain, nausea and vomiting : Reports: flank pain Musc: Reports: back pain Medications/Allergies Home Medications Medication Instructions Recorded Confirmed Last Taken Type amlodipine 5 mg tablet 5 mg PO DAILY 10/10/24 10/11/24 10/10/24 History bisacodyl 10 mg rectal suppository 10 mg [place] DAILY PRN Constipation 10/10/24 10/11/24 Unknown History clonidine HCl 0.1 mg tablet 0.1 mg PO TID #90 tabs 10/10/24 10/11/24 10/10/24 Rx gabapentin 300 mg capsule 300 mg PO TID #90 caps 10/10/24 10/11/24 10/10/24 Rx hydromorphone 8 mg tablet 4 mg (1/2 x 8 mg) PO Q3H PRN pain 10/10/24 10/11/24 10/11/24 Rx 30 days #120 tabs naloxone 4 mg/actuation nasal spray 4 mg intranasal Q2M 10/10/24 10/11/24 Unknown History ondansetron 4 mg disintegrating 4 mg PO Q8H PRN Nausea 10/10/24 10/11/24 Unknown History tablet polyethylene glycol 3350 17 4 g PO DAILY 10/10/24 10/11/24 10/10/24 History gram/dose oral powder promethazine 25 mg tablet 25 mg PO .Q4-6H PRN Nausea 10/11/24 10/11/24 Unknown History Allergies Allergy/AdvReac Type Severity Reaction Status Date / Time No Known Drug Allergies Allergy Unknown Verified 10/11/24 07:35 PFSH Acute PFSH: Medical History Hepatitis C Social History Smoking and tobacco/nicotine status: current some day tobacco/nicotine user Vitals/I&O/Wt Last Vital Signs Temp 97.6 F 10/25/24 17:18 Pulse 100 10/25/24 20:00 Resp 17 10/25/24 19:06 BP 140/88 10/25/24 20:00 Pulse Ox 100 10/25/24 20:00 O2 Del Method Room Air 10/25/24 19:30 Weight last 48 hrs Weight 54.431 kg Physical Exam Narrative: Patient is extremely malnourished, sarcopenia Currently in distress Abdominal pain Epigastric region pain Radiating towards his right flank Emaciated malnourished dehydrated GCS 15 AO x 4 Son at the bedside S1, S2 Blood pressure stable Malnourished No active focal deficit Currently on room air Data 10/25/24 19:01 10/25/24 19:01 A&P Assessment and plan (1) Cholangiocarcinoma: (2) Cancer related pain: (3) Hyponatremia: (4) Protein calorie malnutrition: (5) Portal vein external compression: Plan 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 significant lymphadenopathy, excessive lymph node burden Patient is status post 1 radiation therapy without significant control of pain despite celiac blockade CT abdomen pelvis showing multiple liver lesions with metastatic lesions lymphadenopathy, portal vein hepatic artery occlusion ascites and left lower lobe nodule Patient likely will need multidisciplinary approach oncology, IR and hepatology for his treatment and pain management I have recommended tertiary level of care Both patient and son agreeable for the transfer CT scan showing distended bladder I have requested straight cath While he is waiting for the transfer will give him Dilaudid on as-needed basis and alternate with morphine IV depending on the severity of the pain Patient will need evaluation by a dietitian for TPN versus PPN, Patient is full code stating that in case of pulseless code situation he wants a trial of CPR intubation and defibrillation Son present at the bedside Requested Motley catheter placement and continuation of IV fluids Consult Attestations Medical Necessity Statement: Patient is being transferred for [facility] level of care Coding Level of Care Code 12116 Diagnoses Cholangiocarcinoma C22.1 Cancer related pain G89.3 Hyponatremia E87.1 Protein calorie malnutrition E46 Portal vein external compression I87.1
[2024-10-25] MEDS: HYDROmorphone 1 mg/mL INJ 1 mL 0.4 MG IVP (23:31)
[2024-10-25] MEDS: lactated ringers 1,000 ML 30 ML IV (23:33)
[2024-10-26] VITALS (34 sets, daily range): BP systolic 125–166; BP diastolic 84–113; PULSE 89–104; RESP 16–20; O2SAT 87–98
[2024-10-26 00:30] LABS: Lactic Sepsis W/Reflex 2.3 mmol/L (0.5-2.2)
[2024-10-26 01:55] LABS: Reflex Lactate Order REFLEX LACTIC ORDERD
[2024-10-26] MEDS: HYDROmorphone 1 mg/mL INJ 1 mL 0.4 MG IVP ×4 (02:56→11:59)
[2024-10-26 03:23] LABS: Lactic Acid level (Lactate) 2.1 mmol/L (0.5-2.2)
[2024-10-26] MEDS: pantoprazole 40 mg SDV IVP (08:17)
[2024-10-26] MEDS: HYDROmorphone 1 mg/mL INJ 1 mL 0.6 MG IVP (08:54)
[2024-10-26] MEDS: ondansetron 2 mg/ML SDV 2 mL 4 MG IVP (08:55)
[2024-10-26] MEDS: HYDROmorphone 1 mg/mL INJ 1 mL 0.5 MG IVP ×2 (12:46→14:37)
--- NOTE | 2024-10-26 14:28 | PC.NURSE ---
pt refusing vitals and discharge vitals d/t going home on hospice. pt and family deny any further questions prior to discharge. pt has hospice number (Kristine.)
--- NOTE | 2024-10-26 19:35 | PM.PN ---
Subjective Subjective: Having right side abdominal pain. Poor appetite with nausea. Vitals/I&O/Wt Last Vital Signs Temp 97.6 F 10/25/24 17:18 Pulse 93 10/26/24 12:00 Resp 18 10/26/24 14:37 BP 158/98 10/26/24 12:48 Pulse Ox 94 10/26/24 12:48 O2 Del Method Room Air 10/26/24 12:00 10/26/24 10/26/24 10/26/24 06:59 14:59 22:59 Intake Total 1000 / 1000 Balance 1000 / 1000 Weight last 48 hrs Weight 54.431 kg Physical Exam Const: COMMON NORMALS: patient oriented x3 and alert GENERAL APPEARANCE: cooperative ORIENTATION/CONSCIOUSNESS: Yes awake HENMT: COMMON NORMALS: oropharynx normal Neck/C-Spine: COMMON NORMALS: no JVD Resp: COMMON NORMALS: normal respiratory effort and clear to auscultation bilaterally AUSCULTATION: clear to auscultation bilaterally Cardio: COMMON NORMALS: no JVD, regular rhythm, S1 normal heart sound present, S2 normal heart sound present and No murmurs present (Cardio) RHYTHM: regular rhythm HEART SOUNDS: S1 normal heart sound present and S2 normal heart sound present GI: COMMON NORMALS: Soft to palpation PALPATION: Yes Soft to palpation OTHER: Tender right side abdomen. Abdomen is soft. No rebound. 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 Received IV Dilaudid for pain, IV hydration. His case and imaging was discussed with and reviewed by hepatobiliary surgery at [facility], further discussed with medical oncology team, and on consideration of options unfortunately no viable treatment options could be recommended. This was discussed with patient and his son as per ER provider. Further opinion was sought with [facility] in [place] where his case and imaging were also reviewed returning the same opinion. Upon further discussion with patient and family arrangements were initiated for hospice care with return home. Attestations Medical Necessity Statement*: NA , Moderate MDM includes amount and/or complexity of data reviewed/ordered [ previous or external records and resulted lab(s)/test(s)] as documented and High MDM includes described risk of complication, morbidity or mortality of management as documented Diagnoses Cholangiocarcinoma C22.1 Cancer related pain G89.3 Hyponatremia E87.1 Protein calorie malnutrition E46 Portal vein external compression I87.1
== END 2024-10-26 14:30 | disposition home or self-care (01) ==
PROVIDERS: Emergency Medicine; Physician Assistant; Emergency Provider Family Medicine
DX: C24.9 Malignant neoplasm of biliary tract, unspecified (principal); C78.7 Secondary malignant neoplasm of liver and intrahepatic bile duct; C78.00 Secondary malignant neoplasm of unspecified lung; E87.1 Hypo-osmolality and hyponatremia; G89.3 Neoplasm related pain (acute) (chronic); Z72.0 Tobacco use
CPT/HCPCS: 36415; 74177; 80053; 81001; 83605; 83690; 85025; 85610; 96361; 96374; 96375; 99285; J1171; J2405; J2470; J2765; J7040; J7120

== ENCOUNTER 2024-10-27 02:53 | Emergency (ER) | payer MEDICARE, MEDICAID, SELFPAY ==
[2024-10-27] VITALS (9 sets, daily range): BP systolic 109–157; BP diastolic 76–106; PULSE 91–110; RESP 9–22; TEMP 36.7; O2SAT 92–100; BMI 18.8
--- NOTE | 2024-10-27 03:08 | W.ED.ABDPA2 ---
Documented by User: Christine Anderson MD 10/27/24 04:51 HPI - Abdominal Pain General: Chief Complaint: Abdominal Pain Stated Complaint: ABD Pain Cancer Time Seen by Provider: 10/27/24 03:07 History of Present Illness: 64-year-old man with a history of metastatic cancer that was recently diagnosed and chronic pain syndrome who is on large amount of Dilaudid at home prior to all this he was seen in the emergency room recently and then went home on hospice. He returns today with uncontrolled pain. Apparently he is on 8 mg of Dilaudid and this is not working. Hospice was post to come to his house yesterday but they did not come family says. They said the pain is getting so bad that sometimes he will start vomiting and cannot keep the medicine down either. Related Data Home Medications Medication Instructions Recorded Confirmed amlodipine 5 mg tablet 5 mg PO DAILY 10/10/24 10/27/24 naloxone 4 mg/actuation nasal spray 4 mg intranasal Q2M 10/10/24 10/27/24 polyethylene glycol 3350 17 4 g PO DAILY 10/10/24 10/27/24 gram/dose oral powder promethazine 25 mg tablet 25 mg PO .Q4-6H PRN Nausea 10/11/24 10/27/24 Previous Rx's Medication Instructions Recorded clonidine HCl 0.1 mg tablet 0.1 mg PO TID #90 tabs 10/10/24 gabapentin 300 mg capsule 300 mg PO TID #90 caps 10/10/24 atropine 1 % eye drops 4 drp sublingual Q4H PRN 10/26/24 Secretions #5 mL atropine 1 % eye drops 4 drp sublingual Q4H PRN 10/26/24 secretions #5 mL bisacodyl 10 mg rectal suppository 10 mg DE DAILY PRN constipation #5 10/26/24 ea bisacodyl 10 mg rectal suppository 10 mg DE DAILY PRN Constipation #5 10/26/24 (Dulcolax (bisacodyl)) ea diphenhydramine HCl 25 mg tablet 25 mg PO Q4H #5 tabs 10/26/24 hydromorphone 8 mg tablet 4 mg (1/2 x 8 mg) PO Q3H PRN pain 10/26/24 30 days #120 tabs hydroxyzine HCl 25 mg tablet 25 mg PO TID PRN Itching #5 tabs 10/26/24 lorazepam 2 mg/mL oral concentrate 2 mg sublingual Q4H PRN 10/26/24 Anxiety/Seizure #30 mL morphine concentrate 100 mg/5 mL 20 mg sublingual DIRECTED PRN 10/26/24 (20 mg/mL) oral solution Pain/SOB 14 days #30 mL ondansetron 4 mg disintegrating 4 mg translingual Q4H PRN nausea 10/26/24 tablet #5 tabs Allergies Allergy/AdvReac Type Severity Reaction Status Date / Time No Known Drug Allergies Allergy Unknown Verified 10/27/24 03:02 Review of Systems Narrative: Constitutional symptoms: Negative except as documented in HPI. Skin symptoms: Negative except as documented in HPI. Eye symptoms: Negative except as documented in HPI. ENMT symptoms: Negative except as documented in HPI. Respiratory symptoms: Negative except as documented in HPI. Cardiovascular symptoms: Negative except as documented in HPI. Gastrointestinal symptoms: Negative except as documented in HPI. Genitourinary symptoms: Negative except as documented in HPI. Musculoskeletal symptoms: Negative except as documented in HPI. Neurologic symptoms: Negative except as documented in HPI. Psychiatric symptoms: Negative except as documented in HPI. Endocrine symptoms: Negative except as documented in HPI. PFSH ED PFSH: Medical History Hepatitis C Social History Smoking and tobacco/nicotine status: current some day tobacco/nicotine user Physical Exam Narrative: EXAM NARRATIVE: General: Alert, cachectic appearing Skin: warm and dry Head: Normocephalic Neck: Trachea midline Eye: Extraocular movements are intact. Ears, nose, mouth and throat: Oral mucosa moist Respiratory: Respirations are non-labored Musculoskeletal: Normal ROM Neurological: Alert and oriented, No focal neurological deficit observed. Psychiatric: Cooperative, appropriate mood & affect. Course Vital Signs: Vital signs: Vital Signs Temperature 98.1 F 10/27/24 02:59 Pulse Rate 96 10/27/24 06:30 Respiratory Rate 9 L 10/27/24 06:30 Blood Pressure 135/87 10/27/24 06:30 Pulse Oximetry 92 10/27/24 06:30 Oxygen Delivery Me thod Room Air 10/27/24 06:30 MDM - Abdominal Pain Medical Decision Making Assessment and plan: Metastatic cancer Chronic pain syndrome Hospice patient Uncontrolled pain ? IV Dilaudid. Pain is somewhat improved. - Discharged home - Discussed plan with patient. Answered any questions. - Evaluation and treatment of this problem were appropriate in the emergency setting. Discharge Plan Discharge Patient Disposition: Home Clinical Impression: Hospice care, Chronic pain syndrome, Uncontrolled pain, Carcinoma of hepatobiliary system Condition: Stable Prescriptions: No Action naloxone 4 mg/actuation spray,non-aerosol 4 mg intranasal Q2M Rx Instructions: spray 1 dose into ONE nostril; alternate nostrils w each dose until help arrives amlodipine 5 mg tablet 5 mg PO DAILY polyethylene glycol 3350 17 gram/dose powder 4 g PO DAILY gabapentin 300 mg capsule 300 mg PO TID Qty: 90 0RF clonidine HCl 0.1 mg tablet 0.1 mg PO TID Qty: 90 0RF ondansetron 4 mg tablet,disintegrating 4 mg translingual Q4H PRN (Reason: nausea) Qty: 5 0RF Rx Instructions: Dissolve 1 tablet under tongue every 4 hours PRN for nausea bisacodyl 10 mg suppository 10 mg DE DAILY PRN (Reason: constipation) Qty: 5 0RF Rx Instructions: 1 suppository per rectum every day PRN for constipation. atropine 1 % drops 4 drp sublingual Q4H PRN (Reason: secretions) Qty: 5 0RF Rx Instructions: 4 drops SL q 4 hours PRN for terminal congestion/excessive secretions. lorazepam 2 mg/mL concentrate 2 mg sublingual Q4H PRN (Reason: Anxiety/Seizure) Qty: 30 0RF Rx Instructions: 0.25ml-1ml q4H PRN Anxiety/Seizure Start 0.25ml may increase to 0.5ml-1ml q4H morphine concentrate 100 mg/5 mL (20 mg/mL) solution 20 mg sublingual DIRECTED PRN (Reason: Pain/SOB) 14 Days Qty: 30 0RF Rx Instructions: 0.25ml-1ml q1H PRN may increase to 0.5ml-1ml Q1H PRN hydroxyzine HCl 25 mg tablet 25 mg PO TID PRN (Reason: Itching) Qty: 5 0RF Rx Instructions: Take 1 table by mouth as needed three times a day for itching diphenhydramine HCl 25 mg tablet 25 mg PO Q4H Qty: 5 0RF Rx Instructions: Take one tablet by mouth every 4 hours as needed for allergic reaction including: Rash and/or Itching hydromorphone 8 mg tablet 4 mg PO Q3H PRN (Reason: pain) 30 Days Qty: 120 0RF bisacodyl [Dulcolax (bisacodyl)] 10 mg Suppository 10 mg DE DAILY PRN (Reason: Constipation) Qty: 5 0RF Rx Instructions: 1 suppository per rectum every day PRN for constipation. atropine 1 % Drops 4 drp sublingual Q4H PRN (Reason: Secretions) Qty: 5 0RF Rx Instructions: 4 drops SL q 4 hours PRN for terminal congestion/excessive secretions. promethazine 25 mg tablet 25 mg PO .Q4-6H PRN (Reason: Nausea) Discharge Orders: Discharge ED (Routine); Ordered 10/27/24 Ordered By: Markus Paredes Patient Instructions: Opioid Safety, Pain Management Activity Restrictions/Additional Instructions: Thank you for choosing [facility] for your healthcare needs today. Please realize this is an emergency room and that we are providing you with a medical screening exam and this may not be complete and all inclusive of all the testing and or work up that you may need to determine your ailment or severity of your illness. You have been screened and evaluated and felt safe for discharge. Health conditions do change or evolve sometimes and as such it is important that you follow up with your Primary Doctor to be re checked, 3-5 days is a general good time frame for follow up. You are always welcome to return to the ED for re assessment if your symptoms are worsening or you have new concerns Sign Out Sign Out Data: Patient Sign Out occurred on 10/27/24 at 05:23. Patient's care was discussed, and care was transferred from Christine Anderson MD to Markus Paredes DO. Coding Level of Care Code ED Hospital Supervisor for [facility] Fwd Documented by User: Markus Paredes DO 10/27/24 08:39 HPI - Abdominal Pain General: Chief Complaint: Abdominal Pain Stated Complaint: ABD Pain Cancer Time Seen by Provider: 10/27/24 03:07 Related Data Home Medications Medication Instructions Recorded Confirmed amlodipine 5 mg tablet 5 mg PO DAILY 10/10/24 10/27/24 naloxone 4 mg/actuation nasal spray 4 mg intranasal Q2M 10/10/24 10/27/24 polyethylene glycol 3350 17 4 g PO DAILY 10/10/24 10/27/24 gram/dose oral powder promethazine 25 mg tablet 25 mg PO .Q4-6H PRN Nausea 10/11/24 10/27/24 Previous Rx's Medication Instructions Recorded clonidine HCl 0.1 mg tablet 0.1 mg PO TID #90 tabs 10/10/24 gabapentin 300 mg capsule 300 mg PO TID #90 caps 10/10/24 atropine 1 % eye drops 4 drp sublingual Q4H PRN 10/26/24 Secretions #5 mL atropine 1 % eye drops 4 drp sublingual Q4H PRN 10/26/24 secretions #5 mL bisacodyl 10 mg rectal suppository 10 mg DE DAILY PRN constipation #5 10/26/24 ea bisacodyl 10 mg rectal suppository 10 mg DE DAILY PRN Constipation #5 10/26/24 (Dulcolax (bisacodyl)) ea diphenhydramine HCl 25 mg tablet 25 mg PO Q4H #5 tabs 10/26/24 hydromorphone 8 mg tablet 4 mg (1/2 x 8 mg) PO Q3H PRN pain 10/26/24 30 days #120 tabs hydroxyzine HCl 25 mg tablet 25 mg PO TID PRN Itching #5 tabs 10/26/24 lorazepam 2 mg/mL oral concentrate 2 mg sublingual Q4H PRN 10/26/24 Anxiety/Seizure #30 mL morphine concentrate 100 mg/5 mL 20 mg sublingual DIRECTED PRN 10/26/24 (20 mg/mL) oral solution Pain/SOB 14 days #30 mL ondansetron 4 mg disintegrating 4 mg translingual Q4H PRN nausea 10/26/24 tablet #5 tabs Allergies Allergy/AdvReac Type Severity Reaction Status Date / Time No Known Drug Allergies Allergy Unknown Verified 10/27/24 03:02 PFSH ED PFSH: Medical History Hepatitis C Social History Smoking and tobacco/nicotine status: current some day tobacco/nicotine user Course Vital Signs: Vital signs: Vital Signs Temperature 98.1 F 10/27/24 02:59 Pulse Rate 96 10/27/24 06:30 Respiratory Rate 9 L 10/27/24 06:30 Blood Pressure 135/87 10/27/24 06:30 Pulse Oximetry 92 10/27/24 06:30 Oxygen Delivery Me thod Room Air 10/27/24 06:30 MDM - Abdominal Pain Medical Decision Making Assessment and plan: Metastatic cancer Chronic pain syndrome Hospice patient Uncontrolled pain ? IV Dilaudid. Pain is somewhat improved. - Discharged home - Discussed plan with patient. Answered any questions. - Evaluation and treatment of this problem were appropriate in the emergency setting. Care assumed at change of shift. Patient was discharged yesterday with arrangements for hospice. We contacted the hospice service they had contacted the patient last night and offered to come and see him he declined he did not call them this morning before he came in and they are planning to see him later today patient is wishing to leave now we will discharge him home he is already being given a hospice comfort pack that we prescribed yesterday hospice will see him later today. No radiology studies performed this visit Discharge Plan Discharge Patient Disposition: Home Clinical Impression: Hospice care, Chronic pain syndrome, Uncontrolled pain, Carcinoma of hepatobiliary system Condition: Stable Prescriptions: No Action naloxone 4 mg/actuation spray,non-aerosol 4 mg intranasal Q2M Rx Instructions: spray 1 dose into ONE nostril; alternate nostrils w each dose until help arrives amlodipine 5 mg tablet 5 mg PO DAILY polyethylene glycol 3350 17 gram/dose powder 4 g PO DAILY gabapentin 300 mg capsule 300 mg PO TID Qty: 90 0RF clonidine HCl 0.1 mg tablet 0.1 mg PO TID Qty: 90 0RF ondansetron 4 mg tablet,disintegrating 4 mg translingual Q4H PRN (Reason: nausea) Qty: 5 0RF Rx Instructions: Dissolve 1 tablet under tongue every 4 hours PRN for nausea bisacodyl 10 mg suppository 10 mg DE DAILY PRN (Reason: constipation) Qty: 5 0RF Rx Instructions: 1 suppository per rectum every day PRN for constipation. atropine 1 % drops 4 drp sublingual Q4H PRN (Reason: secretions) Qty: 5 0RF Rx Instructions: 4 drops SL q 4 hours PRN for terminal congestion/excessive secretions. lorazepam 2 mg/mL concentrate 2 mg sublingual Q4H PRN (Reason: Anxiety/Seizure) Qty: 30 0RF Rx Instructions: 0.25ml-1ml q4H PRN Anxiety/Seizure Start 0.25ml may increase to 0.5ml-1ml q4H morphine concentrate 100 mg/5 mL (20 mg/mL) solution 20 mg sublingual DIRECTED PRN (Reason: Pain/SOB) 14 Days Qty: 30 0RF Rx Instructions: 0.25ml-1ml q1H PRN may increase to 0.5ml-1ml Q1H PRN hydroxyzine HCl 25 mg tablet 25 mg PO TID PRN (Reason: Itching) Qty: 5 0RF Rx Instructions: Take 1 table by mouth as needed three times a day for itching diphenhydramine HCl 25 mg tablet 25 mg PO Q4H Qty: 5 0RF Rx Instructions: Take one tablet by mouth every 4 hours as needed for allergic reaction including: Rash and/or Itching hydromorphone 8 mg tablet 4 mg PO Q3H PRN (Reason: pain) 30 Days Qty: 120 0RF bisacodyl [Dulcolax (bisacodyl)] 10 mg Suppository 10 mg DE DAILY PRN (Reason: Constipation) Qty: 5 0RF Rx Instructions: 1 suppository per rectum every day PRN for constipation. atropine 1 % Drops 4 drp sublingual Q4H PRN (Reason: Secretions) Qty: 5 0RF Rx Instructions: 4 drops SL q 4 hours PRN for terminal congestion/excessive secretions. promethazine 25 mg tablet 25 mg PO .Q4-6H PRN (Reason: Nausea) Discharge Orders: Discharge ED (Routine); Ordered 10/27/24 Ordered By: Markus Paredes Patient Instructions: Opioid Safety, Pain Management Activity Restrictions/Additional Instructions: Thank you for choosing [facility] for your healthcare needs today. Please realize this is an emergency room and that we are providing you with a medical screening exam and this may not be complete and all inclusive of all the testing and or work up that you may need to determine your ailment or severity of your illness. You have been screened and evaluated and felt safe for discharge. Health conditions do change or evolve sometimes and as such it is important that you follow up with your Primary Doctor to be re checked, 3-5 days is a general good time frame for follow up. You are always welcome to return to the ED for re assessment if your symptoms are worsening or you have new concerns Sign Out Sign Out Data: Patient Sign Out occurred on 10/27/24 at 05:23. Patient's care was discussed, and care was transferred from Christine Anderson MD to Markus Paredes DO. Coding Level of Care Code ED Hospital Supervisor for Arleen Pollack
[2024-10-27] MEDS: HYDROmorphone 1 mg/mL INJ 1 mL 2 MG IVP (03:29)
[2024-10-27] MEDS: HYDROmorphone 1 mg/mL INJ 1 mL IVP ×2 (08:17→09:13)
== END 2024-10-27 09:43 | disposition home or self-care (01) ==
PROVIDERS: Emergency Provider Family Medicine
DX: C24.9 Malignant neoplasm of biliary tract, unspecified (principal); G89.4 Chronic pain syndrome; Z72.0 Tobacco use
CPT/HCPCS: 36415; 96374; 96376; 99284; J1171